=== PATIENT | male | born 1950 | race Caucasian/White ===

== ENCOUNTER 2017-12-20 10:45 | Emergency (ER) | payer MEDICARE ==
[2017-12-20] MEDS: HYDROCODONE/APAP (5/325) TAB PO (11:53)
[2017-12-20 12:35] LABS: ADD UMIC NO; UR ASCORBIC ACID NEGATIVE (NEGATIVE); UR BILIRUBIN (Dip) NEGATIVE (NEGATIVE); UR BLOOD (Dip) NEGATIVE (NEGATIVE); UR CLARITY CLEAR (CLEAR); UR COLOR YELLOW (YELLOW); UR GLUCOSE (Dip) 3+ mg/dL (NEGATIVE); UR KETONES (Dip) TRACE mg/dL (NEGATIVE); UR LEUKOCYTE ESTERASE (Dip) NEGATIVE Leu/ul (NEGATIVE); UR NITRITE (Dip) NEGATIVE (NEGATIVE); UR SPECIFIC GRAVITY (Dip) 1.025 (1.003-1.030); UR TOTAL PROTEIN (Dip) NEGATIVE (NEGATIVE); UR UROBILINOGEN (Dip) 1+ mg/dL (NEGATIVE)
== END 2017-12-20 13:06 | disposition home or self-care (01) ==
LOC: FTE 10:45
DX: M54.5 Low back pain (principal)
CPT/HCPCS: 81003; 99283